=== PATIENT | male | born 1990 | race Caucasian/White ===

== ENCOUNTER 2018-11-20 19:30 | Emergency (ER) | payer MEDICARE, OTHER ==
[2018-11-20] MEDS: ACETAMINOPHEN 325 MG TAB PO (20:54)
[2018-11-20] MEDS: IBUPROFEN 200 MG TAB PO (20:54)
== END 2018-11-20 21:53 | disposition home or self-care (01) ==
LOC: FTE 19:30
DX: A49.9 Bacterial infection, unspecified (principal)
CPT/HCPCS: 99283

== ENCOUNTER 2018-11-23 07:02 | Inpatient (IN) | payer MEDICARE, OTHER ==
[2018-11-23] MEDS: IPRATROPIUM (NEB) 0.5 MG/2.5 ML AMP INH (08:37)
[2018-11-23] MEDS: ALBUTEROL 0.083% (NEB) 2.5 MG/3 ML AMP INH (08:38)
[2018-11-23] MEDS: ACETAMINOPHEN 500 MG TAB PO (08:39)
[2018-11-23 09:07] LABS: ADD MAN DIFF? NO
[2018-11-23] MEDS: SODIUM CHLORIDE 0.9% 1L BAG IV* (09:10)
[2018-11-23 09:11] LABS: ABNORMAL IP MESSAGE 1; BASOPHILS % 0.2 % (0.0-2.0); HEMATOCRIT 50.3 % (42.0-52.0); LYMPHOCYTES # 0.5 10^3/ul (0.8-2.9); LYMPHOCYTES % 9.3 % (15.0-51.0); MEAN CORPUSCULAR HGB CONC 33.8 g/dl (32.0-37.0); MEAN CORPUSCULAR VOLUME 88.7 fl (82.0-101.0); MEAN PLATELET VOLUME 10.7 fl (7.4-10.4); MONOCYTE # 0.1 10^3/ul (0.3-0.9); MONOCYTES % 2.7 % (0.0-11.0); NEUTROPHIL # 4.6 10^3/ul (1.6-7.5); NEUTROPHILS % 87.4 % (39.0-77.0); PLATELET COUNT 254 10^3/UL (140-415); POSITIVE DIFF @See below; RED BLOOD COUNT 5.67 10^6/ul (4.70-6.10); RED CELL DISTRIBUTION WIDTH 12.5 % (11.5-14.5)
[2018-11-23 09:11] LABS: WHITE BLOOD COUNT 5.3 10^3/ul (4.8-10.8)
[2018-11-23] MEDS: CEFTRIAXONE 1 GM/50 ML (PMX) 50 ML IVPB (09:11)
[2018-11-23 09:12] LABS: ADD UMIC YES; UR ASCORBIC ACID NEGATIVE (NEGATIVE); UR BILIRUBIN (Dip) NEGATIVE (NEGATIVE); UR BLOOD (Dip) 1+ mg/dL (NEGATIVE); UR CLARITY SLIGHTLY CLOUDY (CLEAR); UR COLOR AMBER (YELLOW); UR GLUCOSE (Dip) NEGATIVE (NEGATIVE); UR KETONES (Dip) NEGATIVE (NEGATIVE); UR LEUKOCYTE ESTERASE (Dip) NEGATIVE Leu/ul (NEGATIVE); UR NITRITE (Dip) NEGATIVE (NEGATIVE); UR RBC 1 /HPF (0-5); UR SPECIFIC GRAVITY (Dip) 1.024 (1.003-1.030); UR TOTAL PROTEIN (Dip) 2+ mg/dl (NEGATIVE); UR UROBILINOGEN (Dip) 2+ mg/dL (NEGATIVE); UR WBC 2 /HPF (0-5)
[2018-11-23 09:33] LABS: ALANINE AMINOTRANSFERASE 65 IU/L (13-69); ALBUMIN 3.8 g/dl (3.3-4.9); ALBUMIN/GLOBULIN RATIO 1.15; ALKALINE PHOSPHATASE 89 IU/L (42-121); ANION GAP 10 (5-13); ASPARTATE AMINO TRANSFERASE 106 IU/L (15-46); BILIRUBIN,INDIRECT 0.4 mg/dl (0-1.1); BILIRUBIN,TOTAL 0.4 mg/dl (0.2-1.3); BLOOD UREA NITROGEN 11 mg/dl (7-20); CALCIUM 8.6 mg/dl (8.4-10.2); CARBON DIOXIDE 30 mmol/L (21-31); CHLORIDE 97 mmol/L (97-110); Estimated GFR > 60 mL/min (>60); GLUCOSE 143 mg/dl (70-220); POTASSIUM 3.9 mmol/L (3.5-5.1); SODIUM 137 mmol/L (135-144); TOTAL PROTEIN 7.1 g/dl (6.1-8.1)
[2018-11-23 09:42] LABS: B-TYPE NATRIURETIC PEPTIDE 24 PG/ML (0-125)
[2018-11-23 09:44] LABS: TROPONIN-I < 0.012 ng/ml (0.000-0.120)
[2018-11-23] MEDS: AZITHROMYCIN 500MG/NS (PMX) 250 ML IV (09:44)
[2018-11-23 09:46] LABS: INR 0.92; PROTIME 12.5 Sec (11.9-14.9)
[2018-11-23 09:47] LABS: PARTIAL THROMBOPLASTIN TIME 29.4 Sec (23.0-35.0)
[2018-11-23] MEDS: SOD CHLORIDE 0.9% 100 ML (10:20)
[2018-11-23] MEDS: IOHEXOL 300MG/ML 150 ML BTL (10:22)
[2018-11-23] MEDS: METHYLPREDNISOLONE 125 MG INJ IV (12:28)
[2018-11-23] MEDS ORDERED: GUAIFENESIN/CODEINE 5ML CUP PO (13:00)
[2018-11-23] MEDS: ALBUTEROL 0.083% (NEB) 2.5 MG/3 ML AMP HHN ×3 (14:16→20:00)
[2018-11-23 14:25] LABS: LACTIC ACID 1.4 mmol/L (0.5-2.0)
[2018-11-23 14:42] LABS: FREE T4 (FREE THYROXINE) 1.31 ng/dl (0.79-2.35)
[2018-11-23 14:56] LABS: THYROID STIMULATING HORMONE 0.463 MIU/L (0.465-4.680)
[2018-11-23 15:04] LABS: FREE T3 2.23 pg/ml (2.77-5.27)
[2018-11-23] MEDS: SOD CHLORIDE 0.9% 1,000 ML IV ×2 (15:39→21:00)
[2018-11-24] MEDS: ALBUTEROL 0.083% (NEB) 2.5 MG/3 ML AMP HHN ×3 (01:04→13:03)
[2018-11-24] MEDS: FUROSEMIDE 20 MG INJ IV (02:12)
[2018-11-24 05:54] LABS: ADD MAN DIFF? NO
[2018-11-24 05:59] LABS: BASOPHILS % 0.1 % (0.0-2.0); HEMOGLOBIN 15.6 g/dl (14.0-18.0); LYMPHOCYTES # 0.6 10^3/ul (0.8-2.9); LYMPHOCYTES % 7.5 % (15.0-51.0); MEAN CORPUSCULAR HEMOGLOBIN 29.9 pg (29.0-33.0); MEAN CORPUSCULAR HGB CONC 33.2 g/dl (32.0-37.0); MEAN CORPUSCULAR VOLUME 90.2 fl (82.0-101.0); MEAN PLATELET VOLUME 9.8 fl (7.4-10.4); MONOCYTE # 0.4 10^3/ul (0.3-0.9); MONOCYTES % 4.6 % (0.0-11.0); NEUTROPHILS % 87.3 % (39.0-77.0); PLATELET COUNT 224 10^3/UL (140-415); RED BLOOD COUNT 5.21 10^6/ul (4.70-6.10); RED CELL DISTRIBUTION WIDTH 12.6 % (11.5-14.5)
[2018-11-24 06:24] LABS: LACTIC ACID 1.7 mmol/L (0.5-2.0)
[2018-11-24 06:26] LABS: ANION GAP 9 (5-13); BLOOD UREA NITROGEN 11 mg/dl (7-20); CALCIUM 8.4 mg/dl (8.4-10.2); CARBON DIOXIDE 29 mmol/L (21-31); CHLORIDE 105 mmol/L (97-110); CREATININE 0.72 mg/dl (0.61-1.24); Estimated GFR > 60 mL/min (>60); GLUCOSE 137 mg/dl (70-220); MAGNESIUM 2.4 mg/dl (1.7-2.5); POTASSIUM 3.7 mmol/L (3.5-5.1); SODIUM 143 mmol/L (135-144)
[2018-11-24] MEDS: CEFTRIAXONE 1 GM/50 ML (PMX) 50 ML IVPB (09:09)
[2018-11-24] MEDS: AZITHROMYCIN 500MG/NS (PMX) 250 ML IVPB (11:05)
[2018-11-24] MEDS: ALBUTEROL/IPRATROPIUM (NEB) 3 ML AMP HHN ×2 (13:40→20:02)
[2018-11-24 13:55] LABS: HEMOGLOBIN A1C 5.5 % (0-5.9)
[2018-11-24] MEDS: VERAPAMIL (SR) 120 MG TAB PO (17:40)
[2018-11-24] MEDS: LEVOFLOXACIN 750MG/D5W (PMX) 150 ML IVPB (17:41)
[2018-11-24 17:43] LABS: HIV 1&2 ANTIBODY NEGATIVE (NEGATIVE)
[2018-11-24] MEDS ORDERED: LEVALBUTEROL (NEB) 1.25 MG/0.5 ML AMP HHN (21:00)
[2018-11-24] MEDS: LEVALBUTEROL (NEB) 1.25 MG/0.5 ML AMP HHN (21:00)
[2018-11-24] MEDS: CEFEPIME 1GM/50 ML (PMX) 50 ML IVPB (21:46)
[2018-11-25 00:37] LABS: Allen Test ACCEPTAB; Arterial Base Excess 1.3 mmol/L (-3.0-3); Arterial Blood Gas Oxygen Sat 93.6 mmHG (95.0-98.0); Arterial COHb 0.3 % (0.0-3.0); Arterial HCO3 24.4 mmol/L (22.0-26.0); Arterial MetHb 0.3 % (0.0-1.5); Arterial pCO2 34.4 mmhg (35-45); MODE HFNC; Site Left Radial
[2018-11-25] MEDS: LEVALBUTEROL (NEB) 1.25 MG/0.5 ML AMP HHN ×6 (01:00→20:17)
[2018-11-25 06:15] LABS: ADD MAN DIFF? NO
[2018-11-25 06:20] LABS: WHITE BLOOD COUNT 7.8 10^3/ul (4.8-10.8)
[2018-11-25 06:20] LABS: BASOPHILS % 0.1 % (0.0-2.0); HEMATOCRIT 44.2 % (42.0-52.0); HEMOGLOBIN 14.9 g/dl (14.0-18.0); LYMPHOCYTES # 0.8 10^3/ul (0.8-2.9); LYMPHOCYTES % 10.8 % (15.0-51.0); MEAN CORPUSCULAR HEMOGLOBIN 30.1 pg (29.0-33.0); MEAN CORPUSCULAR HGB CONC 33.7 g/dl (32.0-37.0); MEAN CORPUSCULAR VOLUME 89.3 fl (82.0-101.0); MEAN PLATELET VOLUME 9.4 fl (7.4-10.4); MONOCYTE # 0.4 10^3/ul (0.3-0.9); MONOCYTES % 4.5 % (0.0-11.0); NEUTROPHIL # 6.6 10^3/ul (1.6-7.5); NEUTROPHILS % 84.3 % (39.0-77.0); PLATELET COUNT 262 10^3/UL (140-415); RED BLOOD COUNT 4.95 10^6/ul (4.70-6.10)
[2018-11-25 06:57] LABS: MAGNESIUM 2.3 mg/dl (1.7-2.5)
[2018-11-25 06:57] LABS: PHOSPHORUS 2.7 mg/dl (2.5-4.9)
[2018-11-25 07:00] LABS: CHOL/HDL RATIO 5.5 RATIO; HDL CHOLESTEROL 16 mg/dl (28-63); LDL CHOLESTEROL,CALCULATED 41 mg/dl; TRIGLYCERIDES 158 mg/dl (0-149)
[2018-11-25 07:00] LABS: CHOLESTEROL 89 mg/dl (100-200)
[2018-11-25 07:18] LABS: ANION GAP 9 (5-13); BLOOD UREA NITROGEN 11 mg/dl (7-20); CALCIUM 8.3 mg/dl (8.4-10.2); CARBON DIOXIDE 26 mmol/L (21-31); CHLORIDE 105 mmol/L (97-110); Estimated GFR > 60 mL/min (>60); GLUCOSE 101 mg/dl (70-220); POTASSIUM 3.8 mmol/L (3.5-5.1); SODIUM 140 mmol/L (135-144)
[2018-11-25] MEDS: VERAPAMIL (SR) 120 MG TAB PO (09:46)
[2018-11-25] MEDS: CEFEPIME 1GM/50 ML (PMX) 50 ML IVPB ×2 (09:46→21:27)
[2018-11-25] MEDS: ENOXAPARIN 40 MG/0.4 ML SYG SC (09:56)
[2018-11-25] MEDS: AZITHROMYCIN 500MG/NS (PMX) 250 ML IVPB (11:21)
[2018-11-25] MEDS: LEVOFLOXACIN 750MG/D5W (PMX) 150 ML IVPB (13:00)
[2018-11-25] MEDS: IOHEXOL 14.3 MG(I)/ML (ADULT) BTL PO (13:09)
[2018-11-25] MEDS: SOD CHLORIDE 0.9% 100 ML (15:08)
[2018-11-25] MEDS: IOHEXOL 300MG/ML 150 ML BTL (15:08)
[2018-11-25] MEDS: DEXAMETHASONE 1 MG TAB PO (22:56)
[2018-11-26] MEDS: LEVALBUTEROL (NEB) 1.25 MG/0.5 ML AMP HHN ×6 (00:48→21:00)
[2018-11-26 06:30] LABS: ADD MAN DIFF? NO
[2018-11-26 06:44] LABS: EOSINOPHILS % 0.1 % (0.0-7.0); HEMATOCRIT 47.1 % (42.0-52.0); HEMOGLOBIN 15.7 g/dl (14.0-18.0); LYMPHOCYTES % 9.6 % (15.0-51.0); MEAN CORPUSCULAR HEMOGLOBIN 30.1 pg (29.0-33.0); MEAN CORPUSCULAR HGB CONC 33.3 g/dl (32.0-37.0); MEAN CORPUSCULAR VOLUME 90.2 fl (82.0-101.0); MEAN PLATELET VOLUME 9.5 fl (7.4-10.4); MONOCYTES % 4.6 % (0.0-11.0); NEUTROPHILS % 84.6 % (39.0-77.0); PLATELET COUNT 323 10^3/UL (140-415); RED BLOOD COUNT 5.22 10^6/ul (4.70-6.10)
[2018-11-26 06:45] LABS: BASOPHILS % 0.1 % (0.0-2.0); LYMPHOCYTES # 0.7 10^3/ul (0.8-2.9); MONOCYTE # 0.3 10^3/ul (0.3-0.9); NEUTROPHIL # 5.9 10^3/ul (1.6-7.5)
[2018-11-26 07:42] LABS: MAGNESIUM 2.8 mg/dl (1.7-2.5)
[2018-11-26 07:42] LABS: PHOSPHORUS 3.4 mg/dl (2.5-4.9)
[2018-11-26 07:45] LABS: ANION GAP 10 (5-13); BLOOD UREA NITROGEN 12 mg/dl (7-20); CARBON DIOXIDE 27 mmol/L (21-31); CHLORIDE 103 mmol/L (97-110); CREATININE 0.57 mg/dl (0.61-1.24); Estimated GFR > 60 mL/min (>60); GLUCOSE 98 mg/dl (70-220); POTASSIUM 4.1 mmol/L (3.5-5.1); SODIUM 140 mmol/L (135-144)
[2018-11-26] MEDS: CEFEPIME 1GM/50 ML (PMX) 50 ML IVPB ×2 (09:04→23:45)
[2018-11-26] MEDS: VERAPAMIL (SR) 120 MG TAB PO (09:04)
[2018-11-26] MEDS: ENOXAPARIN 40 MG/0.4 ML SYG SC (09:15)
[2018-11-26] MEDS: AZITHROMYCIN 500MG/NS (PMX) 250 ML IVPB (10:11)
[2018-11-26] MEDS: LEVOFLOXACIN 750MG/D5W (PMX) 150 ML IVPB (13:36)
[2018-11-26] MEDS ORDERED: FAMOTIDINE 20 MG TAB PO (16:30)
[2018-11-26] MEDS: LEVOFLOXACIN 750 MG TABLET PO (19:35)
[2018-11-27] MEDS: LEVALBUTEROL (NEB) 1.25 MG/0.5 ML AMP HHN ×6 (01:01→21:38)
[2018-11-27 04:57] LABS: ADD MAN DIFF? NO
[2018-11-27 05:01] LABS: BASOPHILS % 0.2 % (0.0-2.0); EOSINOPHILS # 0.1 10^3/ul (0.0-0.5); HEMATOCRIT 45.5 % (42.0-52.0); HEMOGLOBIN 15.1 g/dl (14.0-18.0); LYMPHOCYTES # 0.8 10^3/ul (0.8-2.9); LYMPHOCYTES % 8.8 % (15.0-51.0); MEAN CORPUSCULAR HEMOGLOBIN 29.4 pg (29.0-33.0); MEAN CORPUSCULAR HGB CONC 33.2 g/dl (32.0-37.0); MEAN CORPUSCULAR VOLUME 88.5 fl (82.0-101.0); MEAN PLATELET VOLUME 9.1 fl (7.4-10.4); MONOCYTE # 0.4 10^3/ul (0.3-0.9); MONOCYTES % 4.3 % (0.0-11.0); PLATELET COUNT 437 10^3/UL (140-415); RED BLOOD COUNT 5.14 10^6/ul (4.70-6.10); RED CELL DISTRIBUTION WIDTH 12.6 % (11.5-14.5)
[2018-11-27 05:01] LABS: WHITE BLOOD COUNT 9.6 10^3/ul (4.8-10.8)
[2018-11-27 05:16] LABS: MAGNESIUM 2.6 mg/dl (1.7-2.5)
[2018-11-27 05:16] LABS: PHOSPHORUS 2.9 mg/dl (2.5-4.9)
[2018-11-27 05:17] LABS: ANION GAP 9 (5-13); BLOOD UREA NITROGEN 11 mg/dl (7-20); CALCIUM 8.6 mg/dl (8.4-10.2); CARBON DIOXIDE 26 mmol/L (21-31); CHLORIDE 105 mmol/L (97-110); CREATININE 0.48 mg/dl (0.61-1.24); Estimated GFR > 60 mL/min (>60); GLUCOSE 95 mg/dl (70-220); POTASSIUM 3.6 mmol/L (3.5-5.1); SODIUM 140 mmol/L (135-144)
[2018-11-27] MEDS: LEVOFLOXACIN 750 MG TABLET PO (06:55)
[2018-11-27 07:01] LABS: ALDOSTERONE <1 ng/dL
[2018-11-27] MEDS: ENOXAPARIN 40 MG/0.4 ML SYG SC (09:11)
[2018-11-27] MEDS: CEFEPIME 1GM/50 ML (PMX) 50 ML IVPB ×2 (09:11→20:12)
[2018-11-27] MEDS: VERAPAMIL (SR) 120 MG TAB PO (10:47)
[2018-11-27 12:20] LABS: FREE T4 (FREE THYROXINE) 1.88 ng/dl (0.79-2.35)
[2018-11-27 12:21] LABS: FREE T3 3.81 pg/ml (2.77-5.27)
[2018-11-27 14:02] LABS: ANCA SCREEN NEGATIVE (NEGATIVE); MYELOPEROXIDASE ANTIBODY <1.0 AI; PROTEINASE-3 ANTIBODY <1.0 AI
[2018-11-27] MEDS: OXYMETAZOLINE 0.05% 15 ML NAS SPRAY NASAL (20:12)
[2018-11-28] MEDS: LEVALBUTEROL (NEB) 1.25 MG/0.5 ML AMP HHN ×6 (01:41→20:22)
[2018-11-28] MEDS: LEVOFLOXACIN 750 MG TABLET PO (06:03)
[2018-11-28] MEDS: OXYMETAZOLINE 0.05% 15 ML NAS SPRAY NASAL ×2 (09:33→20:35)
[2018-11-28] MEDS: CEFEPIME 1GM/50 ML (PMX) 50 ML IVPB ×2 (09:33→20:35)
[2018-11-28] MEDS: ENOXAPARIN 40 MG/0.4 ML SYG SC (09:36)
[2018-11-28] MEDS: VERAPAMIL (SR) 120 MG TAB PO (09:37)
[2018-11-28 13:27] LABS: NIL 0.17 IU/mL; QUANTIFERON(R)-TB GOLD NEGATIVE (NEGATIVE); TB-NIL <0.00 IU/mL; TB2-NIL 0.01 IU/mL
[2018-11-28 23:32] LABS: CRYPTOCOCCAL ANTIGEN - SOURCE SERUM
[2018-11-29] MEDS: LEVALBUTEROL (NEB) 1.25 MG/0.5 ML AMP HHN ×5 (00:27→16:35)
[2018-11-29] MEDS: LEVOFLOXACIN 750 MG TABLET PO (06:19)
[2018-11-29] MEDS: CEFEPIME 1GM/50 ML (PMX) 50 ML IVPB (08:15)
[2018-11-29] MEDS: OXYMETAZOLINE 0.05% 15 ML NAS SPRAY NASAL (08:15)
[2018-11-29] MEDS: ENOXAPARIN 40 MG/0.4 ML SYG SC (08:16)
[2018-11-29] MEDS: VERAPAMIL (SR) 120 MG TAB PO (08:16)
== END 2018-11-29 17:00 | DRG 871 ==
LOC: E/R 07:02 → 2NE 11-26 21:20 → 6WM 09:22
DX: A41.9 Sepsis, unspecified organism (principal); J18.8 Other pneumonia, unspecified organism; J96.01 Acute respiratory failure with hypoxia; E66.01 Morbid (severe) obesity due to excess calories; Z68.38 Body mass index [BMI] 38.0-38.9, adult; R65.20 Severe sepsis without septic shock; E05.90 Thyrotoxicosis, unspecified without thyrotoxic crisis or storm; E27.9 Disorder of adrenal gland, unspecified; K76.0 Fatty (change of) liver, not elsewhere classified; F17.210 Nicotine dependence, cigarettes, uncomplicated; K91.5 Postcholecystectomy syndrome
CPT/HCPCS: 36415; 36600; 71045; 71260; 74178; 74183; 80048; 80053; 80061; 81001; 82088; 82384; 82533; 82803; 83036; 83605; 83735; 83880; 84100; 84244; 84439; 84443; 84481; 84484; 85025; 85610; 85730; 86021; 86480; 86606; 86635; 86641; 86698; 86703; 87040; 87081; 87086; 87400; 90686; 93005; 93306; 94640; 94664; 96374; 99291-25